=== PATIENT | male | born 1930 | race Caucasian/White ===

== ENCOUNTER 2017-05-22 19:59 | Emergency (ER) | payer MEDICARE, OTHER ==
[2011-08-12 03:19] VITALS: BMI 27.4
== END 2017-05-22 21:50 | disposition home or self-care (01) ==
LOC: D.ER 19:59
DX: S01.311A Laceration without foreign body of right ear, initial encounter (principal); W26.9XXA Contact with unspecified sharp object(s), initial encounter; Y93.89 Activity, other specified; Y92.029 Unspecified place in mobile home as the place of occurrence of the external cause; G70.00 Myasthenia gravis without (acute) exacerbation

== ENCOUNTER 2017-05-31 10:29 | Emergency (ER) | payer MEDICARE, OTHER ==
[2011-08-12 03:19] VITALS: BMI 27.4
== END 2017-05-31 11:18 | disposition home or self-care (01) ==
LOC: D.ER 10:29
DX: S01.312D Laceration without foreign body of left ear, subsequent encounter (principal); X58.XXXD Exposure to other specified factors, subsequent encounter; Y92.029 Unspecified place in mobile home as the place of occurrence of the external cause; Z48.02 Encounter for removal of sutures; G70.00 Myasthenia gravis without (acute) exacerbation

== ENCOUNTER 2017-11-01 13:17 | Emergency (ER) | payer MEDICARE, OTHER ==
[2011-08-12 03:19] VITALS: BMI 27.4
[2017-11-01 15:08] LABS: APPEARANCE CLEAR (CLEAR); COLOR YELLOW (YELLOW)
[2017-11-01 15:09] LABS: BILIRUBIN NEGATIVE (NEGATIVE); GLUCOSE NEGATIVE (NEGATIVE); KETONE NEGATIVE (NEGATIVE); NITRITE NEGATIVE (NEGATIVE); PROTEIN NEGATIVE (NEGATIVE); SPECIFIC GRAVITY 1.015 (1.005-1.020); UROBILINOGEN NORMAL (NORMAL)
== END 2017-11-01 15:14 | disposition home or self-care (01) ==
LOC: D.ER 13:17
PROVIDERS: Emergency Medicine
DX: N50.82 Scrotal pain (principal); G70.00 Myasthenia gravis without (acute) exacerbation

== ENCOUNTER 2019-12-10 15:03 | Emergency (ER) | payer MEDICARE, OTHER ==
[~2019-12-10] VITALS: Ht 177.8 cm; Wt 84.5 kg
[2019-12-10 15:07] VITALS: Ht 177.8 cm; Wt 84.5 kg
[2019-12-10] MEDS ORDERED: MIRALAX17 GM PO (17:44)
[2019-12-10 18:21] VITALS: BP 125/68
== END 2019-12-10 18:22 | disposition home or self-care (01) ==
LOC: D.ER 15:03
DX: K59.00 Constipation, unspecified (principal); E03.9 Hypothyroidism, unspecified; K64.9 Unspecified hemorrhoids